=== PATIENT | male | born 1940 ===

== ENCOUNTER 2017-06-11 10:25 | Emergency (ER) | payer OTHER ==
--- NOTE | 2017-06-11 10:40 | CPEKG ---
Heart Rate: 94 RR Interval: 638 P-R Interval: 220 QRSD Interval: 126 QT Interval: 384 QTC Interval: 481 P [place]: 25 QRS [place]: 35 T Wave [place]: -47 EKG Severity - ABNORMAL ECG - EKG Impression: SINUS RHYTHM EKG Impression: FIRST DEGREE AV BLOCK EKG Impression: PROBABLE LEFT ATRIAL ABNORMALITY EKG Impression: INTRAVENTRICULAR CONDUCTION DELAY EKG Impression: INFERIOR INFARCT, AGE INDETERMINATE EKG Impression: ANTERIOR INFARCT, AGE INDETERMINATE Electronically Signed By: Scooter Kaur 13-Jun-2017 07:19:05
[2017-06-11] MEDS ORDERED: ASPIRIN 81 MG CHEWABLE TAB ONE (10:44)
[2017-06-11] MEDS ORDERED: ASPIRIN 81 MG CHEWABLE TAB PO ONE (10:44)
[2017-06-11 11:21] LABS: PLATELET COUNT 249 10^3/uL (150-400)
[2017-06-11 11:35] LABS: INR 0.99 (0.83-1.16)
--- NOTE | 2017-06-11 12:51 | EDPHY ---
H & P Stated Complaint: chest pressure from 730am-9am this am while shoveling; now pain free Time Seen by Provider: 06/11/17 10:27 HPI/ROS: 76-year-old male brought over from his primary care physician's office, there for a routine visit however while there he mentioned that he had had chest pressure and chest pain substernal lasting approximately an hour after shoveling snow this morning. He denies smoking He has no history of hypertension, diabetes, hyperlipidemia and no family history of coronary artery disease. No family history of early myocardial infarction He currently denies chest pain. Review of systems As per HPI General no fever no chills no weakness HEENT no eye pain no eye discharge. No eye redness, no sore throat Respiratory no cough, no shortness of breath Cardiac positive chest pain, no peripheral edema GI no abdominal pain, no diarrhea, no constipation, no nausea, no vomiting no flank pain, no hematuria, no dysuria Musculoskeletal no myalgias, no joint pain Heme no easy bruising, no easy bleeding Endo no polyuria, no polydipsia Skin no rashes, no pruritus Neuro no syncope, no dizziness, no headaches Psych is no suicidal ideation, no homicidal ideation Source: Patient - Personal History Current Tetanus/Diphtheria Vaccine: Yes - Medical/Surgical History Hx Asthma: No Hx Chronic Respiratory Disease: No Hx Diabetes: No Hx Cardiac Disease: No Hx Renal Disease: No Hx Cirrhosis: No Hx Alcoholism: No Hx HIV/AIDS: No Hx Splenectomy or Spleen Trauma: No Other PMH: orthopedic surgeries. appy. hernia - Family History Significant Family History: No pertinent family hx - Social History Smoking Status: Never smoked Alcohol Use: None Drug Use: None - Physical Exam Exam: 76-year-old male alert and oriented no acute distress nontoxic appearance afebrile HEENT atraumatic normocephalic, extraocular muscles intact, anicteric Oropharynx negative for erythema negative exudate, tolerating her own secretions Neck supple no meningismus Lungs clear to auscultation bilaterally Heart regular rate and rhythm without murmur rub or gallop Abdomen nondistended normoactive bowel sounds soft nontender Back no CVA tenderness, no step-offs, no spinal tenderness Extremities no cyanosis clubbing or edema Neuro alert and oriented, no focal deficits Constitutional: Initial Vital Signs Temperature (C) 36.5 C 06/11/17 10:28 Heart Rate 100 06/11/17 10:28 Respiratory Rate 14 06/11/17 10:28 Blood Pressure 160/96 H 06/11/17 10:28 O2 Sat (%) 95 06/11/17 10:28 O2 Delivery Mode Room Air Allergies/Adverse Reactions: TOPICAL STERIODS Allergy (Mild, Uncoded 01/29/09 10:13) Hives Home Medications: Medication Instructions Recorded NK [No Known Home Meds] 06/11/17 Medical Decision Making - Diagnostics Imaging Results: Imaging Impressions Chest X-Ray 06/11/17 10:42 Impression: 1. No definite acute findings. 2. Slight increase in interstitial prominence with low lung volumes, suspicious for interstitial lung disease 3. Ankylosis of the thoracic spine. ED Course/Re-evaluation: Patient seen and evaluated for episode of chest pressure/chest pain this morning lasting approximately 1 hr EKG normal sinus rhythm, right bundle branch block, cues in inferior and anterior leads no ST elevation Troponin normal D-dimer negative CBC, CMP within normal limits Chest x-ray No consolidation Impression Chest pain rule out acute coronary syndrome Plan Transfer to [facility] for direct admission to observation tele Discussed with Dr. Connor. Differential Diagnosis: Differential diagnosis considered but not limited to GERD, angina, acute coronary syndrome, myocardial infarction, pulmonary embolus , pneumonia - Data Points Laboratory Results: Laboratory Results 06/11/17 11:15 06/11/17 11:15 06/11/17 06/11/17 06/11/17 11:15 11:15 11:15 WBC 10.57 10^3/uL H 10^3/uL (3.80-9.50) RBC 5.23 10^6/uL 10^6/uL (4.40-6.38) Hgb 17.1 g/dL g/dL (13.7-17.5) Hct 48.2 % % (40.0-51.0) MCV 92.2 fL fL (81.5-99.8) MCH 32.7 pg pg (27.9-34.1) MCHC 35.5 g/dL g/dL (32.4-36.7) RDW 13.2 % % (11.5-15.2) Plt Count 249 10^3/uL 10^3/uL (150-400) MPV 8.8 fL fL (8.7-11.7) Neut % (Auto) 67.3 % % (39.3-74.2) Lymph % (Auto) 21.4 % % (15.0-45.0) [place] % (Auto) 7.3 % % (4.5-13.0) Eos % (Auto) 3.0 % % (0.6-7.6) Baso % (Auto) 0.6 % % (0.3-1.7) Nucleat RBC Rel Count 0.0 % % (0.0-0.2) Absolute Neuts (auto) 7.12 10^3/uL H 10^3/uL (1.70-6.50) Absolute Lymphs (auto) 2.26 10^3/uL 10^3/uL (1.00-3.00) Absolute Monos (auto) 0.77 10^3/uL 10^3/uL (0.30-0.80) Absolute Eos (auto) 0.32 10^3/uL 10^3/uL (0.03-0.40) Absolute Basos (auto) 0.06 10^3/uL 10^3/uL (0.02-0.10) Absolute Nucleated RBC 0.00 10^3/uL 10^3/uL (0-0.01) Immature Gran % 0.4 % % (0.0-1.1) Immature Gran # 0.04 10^3/uL 10^3/uL (0.00-0.10) PT 13.0 SEC SEC (12.0-15.0) INR 0.99 (0.83-1.16) APTT 26.6 SEC SEC (23.0-38.0) D-Dimer < 0.27 ug/mLFEU ug/mLFEU (0.00-0.50) Sodium 142 mEq/L mEq/L (135-145) Potassium 4.3 mEq/L mEq/L (3.5-5.2) Chloride 102 mEq/L mEq/L (97-110) Carbon Dioxide 25 mEq/l mEq/l (22-31) Anion Gap 15 mEq/L mEq/L (8-16) BUN 16 mg/dL mg/dL (7-23) Creatinine 1.0 mg/dL mg/dL (0.7-1.3) Estimated GFR > 60 Glucose 117 mg/dL H mg/dL (70-100) Calcium 9.5 mg/dL mg/dL (8.5-10.4) Total Bilirubin 1.2 mg/dL mg/dL (0.1-1.4) AST 17 IU/L IU/L (17-59) ALT 34 IU/L IU/L (21-72) Alkaline Phosphatase 62 IU/L IU/L (38-126) Troponin I < 0.012 ng/mL ng/mL (0.000-0.034) Total Protein 7.1 g/dL g/dL (6.3-8.2) Albumin 4.0 g/dL g/dL (3.5-5.0) Lipase 271 IU/L IU/L (23-300) Medications Given: Discontinued Medications Aspirin (Aspirin) 324 mg PO EDNOW ONE Stop: 06/11/17 10:45 Last Admin: 06/11/17 10:45 Dose: 324 mg Departure - Departure Disposition: Acute Care Hospital Not [facility] Clinical Impression: Chest pain Condition: Good Referrals: Rohit Tsai DO [Primary Care Provider] - As per Instructions
[2017-06-11 13:40] VITALS: BP 162/92; PULSE 92; RESP 20; TEMP 98.2; O2SAT 94
== END 2017-06-11 14:03 | disposition short-term general hospital (02) ==
LOC: CED 10:25
DX: R07.9 Chest pain, unspecified (principal)
CPT/HCPCS: 71046-PO; 80053-PO; 83690-PO; 84484-PO; 85025-PO; 85378-PO; 85610-PO; 85730-PO

== ENCOUNTER → 2018-06-20 | Outpatient (CLI) | payer OTHER | LOC: CIMAGING 15:54 | PROVIDERS: ATTEND Family Medicine | DX: R05 Cough (principal); R91.8 Other nonspecific abnormal finding of lung field | CPT/HCPCS: 71046-PO ==

== ENCOUNTER → 2018-07-10 | Outpatient (CLI) | payer OTHER | LOC: CIMAGING 10:15 | PROVIDERS: ATTEND Family Medicine | DX: R93.89 Abnormal findings on diagnostic imaging of other specified body structures (principal); J84.9 Interstitial pulmonary disease, unspecified | CPT/HCPCS: 71250-PO ==